=== PATIENT | female | born 1935 | race Caucasian/White ===

== ENCOUNTER 2019-10-20 15:29 | Inpatient (IN) | payer OTHER ==
[~2019-10-20] VITALS: Ht 154.9 cm; Wt 54.9 kg
[~2019-10-20 15:29] MED LIST: ASPI-1052 PO; BENA1TAB PO; DICL100T2 PO; MELO15TA11 PO; METO50TE2 PO; OMEGA 3 PO; [UNRECOGNIZED DRUG - CODE] PO
[2019-10-20 15:37] VITALS: BP 144/60
[2019-10-20] MEDS ORDERED: ACETAMINOPHEN EXTRA STRENGTH 500 MG TAB PO ONE (15:45)
--- NOTE | 2019-10-20 15:46 | NUR ---
tylenol administered by sonia encarnacion for fever
--- NOTE | 2019-10-20 15:47 | NUR ---
PT TAKEN TO ER BED 06
--- NOTE | 2019-10-20 15:50 | NUR ---
C/O PRODUCTIVE COUGH, FEVER, BODY ACHES X 1 WEEK, WITH DECREASED APPETITE X 2 DAYS. TEMP 103.5 AT THIS TIME. CRACKLES IN BILATERAL LUNGS, PT FRAIL IN APPEARANCE. PT ALERT AND AWAKE. AMBULATORY WITH ASSISTANCE. PMH- HTN
--- NOTE | 2019-10-20 15:51 | NUR ---
PT DENIES AB PAIN, SOB, CP, OR N/V/D
[2019-10-20] MEDS ORDERED: NACL 0.9% 1,600 ML IV ONE (16:34)
[2019-10-20] MEDS ORDERED: LEVOFLOXACIN 500 MG/D5W PREMIX 100 ML IV ONE (16:35)
[2019-10-20] MEDS ORDERED: AZITHROMYCIN 500 MG in DEXTROSE 5% 250 ML IV ONE (16:35)
--- NOTE | 2019-10-20 16:39 | NUR ---
PT AMB TO RESTROOM WITH ASSISTANCE, URINE COLLECTED
[2019-10-20] MEDS ORDERED: AZITHROMYCIN 500 MG INJ VIAL IV ONE (16:42)
--- NOTE | 2019-10-20 16:50 | NUR ---
IV INSERTED BY STUDENTS AND INSTRUCTOR
--- NOTE | 2019-10-20 17:03 | NUR ---
XRAY AT BEDSIDE
[2019-10-20 17:05] LABS: APPEARANCE,URINE SL CLOUDY (CLEAR); BILIRUBIN,URINE 1+ (NEGATIVE); BLOOD, URINE 3+ (NEGATIVE); COLOR,URINE YELLOW (YELLOW); LEUKOCYTE ESTERASE ,URINE TRACE (NEGATIVE); NITRITE, URINE NEGATIVE (NEGATIVE); PH,URINE 5.5 (5.0-9.0); UGLUCOSE NEGATIVE (NEGATIVE)
--- NOTE | 2019-10-20 17:06 | NUR ---
FLUIDS AND LEVAQUIN STARTED
--- NOTE | 2019-10-20 17:08 | NUR ---
VS STABLE. PT AFEBRILE, NADR
--- NOTE | 2019-10-20 17:08 | NUR ---
PER DR PIERCE HOLD IVF AT THIS TIME
[2019-10-20 17:25] LABS: BASOPHILS # (AUTO) 0.1 K/uL (0.00-0.22); BASOPHILS % (AUTO) 0.9 % (0.0-2.0); EOSINOPHILS % (AUTO) 0.2 % (0.0-4.0); HEMATOCRIT 38.7 % (36-48); HEMOGLOBIN 12.7 g/dL (12.0-16.0); LYMPHOCYTES # (AUTO) 0.8 K/uL (2.5-16.5); LYMPHOCYTES % (AUTO) 8.5 % (20.5-51.1); MEAN CORPUSCULAR HEMOGLOBIN 30 pg (27-31); MEAN CORPUSCULAR HGB CONC 33 g/dL (33-37); MEAN CORPUSCULAR VOLUME 91.3 fL (80-94); MONOCYTES # (AUTO) 0.5 K/uL (0.8-1.0); MONOCYTES % (AUTO) 5.6 % (1.7-9.3); NEUTROPHILS # (AUTO) 8.2 K/uL (1.8-7.7); NEUTROPHILS % (AUTO) 84.8 % (42.2-75.2); PLATELET COUNT (AUTO) 341 K/uL (140-450); RED BLOOD CELL COUNT(AUTO) 4.25 MIL/uL (4.20-5.40); RED CELL DISTRIBUTION WIDTH 12.6 % (11.6-13.7); WHITE BLOOD COUNT (AUTO) 9.6 K/uL (4.8-10.8)
[2019-10-20 17:30] LABS: RBC,URINE 11-20 (MOD) /HPF (0-5)
[2019-10-20 17:40] LABS: ANION GAP 11.7 (8-16); ASPARTATE AMINOTRANSFERASE 22 U/L (15-37); CARBON DIOXIDE 29.2 mmol/L (21-32); CHLORIDE 98 mmol/L (98-107); CREATININE 0.7 mg/dL (0.6-1.3); GLUCOSE 111 mg/dL (74-106); POTASSIUM 3.9 mmol/L (3.5-5.1); SODIUM SERUM 135 mmol/L (136-145); TOTAL BILIRUBIN 0.4 mg/dL (0.0-1.0); UREA NITROGEN, BLOOD 10 mg/dL (7-18)
[2019-10-20] MEDS ORDERED: NACL 0.9% 1,000 ML IV SCH (18:28)
--- NOTE | 2019-10-20 18:28 | NUR ---
PT FORGETFUL, CONTINUES TO ASK WHERE HER SON WENT. REMINDED PT THAT HER SON WENT TO GO GET FOOD. PT CANT RECALL MONTH OR YEAR. REMEMBERS HER BIRTHDAY AND NAME AND PLACE.
--- NOTE | 2019-10-20 18:28 | NUR ---
CONTINUING TO HOLD IVF, PENDING ADMISSION
[2019-10-20] MEDS ORDERED: ONDANSETRON 4 MG/2 ML VIAL IM/IVP PRN (18:30)
[2019-10-20] MEDS ORDERED: DOCUSATE SODIUM 100 MG GELCAP PO PRN (18:30)
[2019-10-20] MEDS ORDERED: ACETAMINOPHEN 325 MG TAB PO PRN (18:30)
--- NOTE | 2019-10-20 18:38 | NUR ---
VERBAL ORDER FOR CARDIAC DIET, PT OKAY TO EAT PER DR PIERCE
--- NOTE | 2019-10-20 18:45 | NUR ---
PTS SON AT BEDSIDE, CANT RECALL PTS MEDICATIONS. STATES HE WILL GO HOME AND GET A LIST
--- NOTE | 2019-10-20 19:04 | NUR ---
assisted pt to restroom. son returned to bedside. informed pb pineda rn, that med rec needs to be completed.
--- NOTE | 2019-10-20 19:08 | NUR ---
REPORT GIVEN BY SILVIA COELHO AND ASSUMED CARE. PT IN BED WITH MEAL TRAY AT BEDSIDE.
[2019-10-20 19:16] LABS: PROTHROMBIN TIME 10.7 secs (10.8-13.4)
[2019-10-20] MEDS ORDERED: ALBU2SYR49 PO (19:29)
[2019-10-20 19:30] LABS: MAGNESIUM 1.8 mg/dL (1.8-2.4); PHOSPHORUS 2.9 mg/dL (2.5-4.9); THYROID STIMULATING HORMONE 1.17 uIU/mL (0.34-3.74)
[2019-10-20 20:40] VITALS: BP 132/58
--- NOTE | 2019-10-20 20:45 | NUR ---
PT ARRIVED ON UNIT VIA GIULIA REPORT GIVEN AT BEDSIDE FORM GILBERTO RN DAYSHIFT NURSE. PT IS AOX2-3 WITH 4 LITERS N/C, PT HAS SKI INTACT AND IV SITE #20 G ON LEFT WRIST INTACT AND ASYMPTOMATIC. PT ABLE TO AMBULATE WITH ASSISTANCE,. SHE IS ALERT WITH CONFUSION. PT PLACED ON FALLS PRECAUTIONS. V/S FOLLOWS: T 98.0 P 60 R 18 B/P 132/58 02 94% WITH 4 LITERS VIA N/C.
--- NOTE | 2019-10-20 20:58 | NUR ---
Patient will be admitted to care of DR WHATLEY. Admited to [facility]. Will go to room 120B. Belongings list completed. Report to SILVIA HERRON.
--- NOTE | 2019-10-20 22:00 | NUR ---
PT INTERVIEWED WITH PRIMARY MD AT BEDSIDE. PT CONTINUES ON 4 LITERS SUPPLEMENTAL 02 % LUNGS CLEAR. PT ASSISTED TO TOILET AND BACK. MD ORDERED NS WITH D5 SALINE LOCKED. HE ORDERED ZOSYN FOR KVO AND ORDERED FLUIDS TO NS RUNNING AY 10MLS/HR.ALL FALLS PRECAUTIONS IN PLACE.
[2019-10-20] MEDS ORDERED: FUROSEMIDE 40 MG/4 ML VIAL IVP SCH (22:50)
[2019-10-20] MEDS ORDERED: DEXT 5% / NACL 0.9% 500 ML IV SCH (22:50)
[2019-10-20] MEDS ORDERED: ALBUTEROL SULFATE/IPRATROPIU 3 ML SOL IH PRN (23:25)
[2019-10-20] MEDS ORDERED: MECLIZINE 25 MG TAB PO PRN (23:45)
[2019-10-21] MEDS ORDERED: PIPERACILLIN/TAZOBACTAM 4.5 GM in DEXTROSE 5% 100 ML IV SCH ×2
--- NOTE | 2019-10-21 00:30 | NUR ---
PT ASSISTED TO TOILET AND BACK AND PLACED ON OXYGEN. ATTE,PTED TO REACH. ATTEMPTED TO REACH V/S, PT IN STABLE CONDITION. ALL UNIVERSAL PRECAUTIONS IN PLACE.
[2019-10-21] MEDS ORDERED: PIPERACILLIN/TAZOBACTAM 3.375 GM VIAL IV ONE ×2 (00:55→05:17)
[2019-10-21] MEDS: METOPROLOL SUCCINATE 50 MG TABER PO SCH ×2 (01:14→20:05)
[2019-10-21] MEDS: PIPERACILLIN/TAZOBACTAM 3.375 GM in DEXTROSE 5% 50 ML IV SCH ×5 (01:16→23:35)
[2019-10-21 04:00] VITALS: BP 145/62
--- NOTE | 2019-10-21 04:00 | NUR ---
PT ESCORTED TO TOILET THROUGHOUT NIGHT. RT TOOK BLOOD AT BEDSIDE.A UNIVERSAL PRECAUTIONS IN PLACE,
--- NOTE | 2019-10-21 05:30 | NUR ---
LIN OVALLE AND RUNNING ORDERED. LAST V/S FOLLOWS: T 98.3 P 62 R 18 B/P 145/62 02 4LITERS. ALL UNIVERSAL PRECAUTIONS IN PLACE.
[2019-10-21 06:15] LABS: BASOPHILS % (AUTO) 0.2 % (0.0-2.0); EOSINOPHILS % (AUTO) 0.5 % (0.0-4.0); HEMATOCRIT 37.5 % (36-48); HEMOGLOBIN 12.3 g/dL (12.0-16.0); LYMPHOCYTES # (AUTO) 1.3 K/uL (2.5-16.5); LYMPHOCYTES % (AUTO) 17.5 % (20.5-51.1); MEAN CORPUSCULAR HEMOGLOBIN 30 pg (27-31); MEAN CORPUSCULAR HGB CONC 33 g/dL (33-37); MEAN CORPUSCULAR VOLUME 91.5 fL (80-94); MONOCYTES # (AUTO) 0.5 K/uL (0.8-1.0); MONOCYTES % (AUTO) 7.1 % (1.7-9.3); NEUTROPHILS # (AUTO) 5.6 K/uL (1.8-7.7); NEUTROPHILS % (AUTO) 74.7 % (42.2-75.2); PLATELET COUNT (AUTO) 310 K/uL (140-450); RED CELL DISTRIBUTION WIDTH 12.5 % (11.6-13.7); WHITE BLOOD COUNT (AUTO) 7.5 K/uL (4.8-10.8)
[2019-10-21 06:49] LABS: ANION GAP 5.3 (8-16); CARBON DIOXIDE 34.1 mmol/L (21-32); CHLORIDE 102 mmol/L (98-107); CREATININE 0.7 mg/dL (0.6-1.3); GLUCOSE 108 mg/dL (74-106); POTASSIUM 3.4 mmol/L (3.5-5.1); SODIUM SERUM 138 mmol/L (136-145); UREA NITROGEN, BLOOD 8 mg/dL (7-18)
[2019-10-21 07:04] LABS: CHOL/HDL RATIO 3.5 (1-4.5)
--- NOTE | 2019-10-21 07:25 | NUR ---
RECEIVED BEDSIDE REPORT FROM SILVIA HERRON. PATIENT AWAKE, ALERT AND ORIENTED X2. RESPIRATIONS EVEN AND UNLABORED. INTRODUCED SELF. NO S/S OF DISTRESS NOTED. BED IN LOW POSITION. BED ALARM ON. SAFETY MEASURES IN PLACE. CALL LIGHT WITHIN REACH. IV INTACT AND PATENT TO LEFT FOREARM. PLANS OF CARE DISCUSSED.
[2019-10-21 08:00] VITALS: BP 151/52
[2019-10-21] MEDS: ALBUTEROL SULFATE/IPRATROPIU 3 ML SOL IH SCH ×3 (08:30→21:04)
--- NOTE | 2019-10-21 08:30 | NUR ---
AWAKE AND ALERT VERBALLY RESPONSIVE TO SALES PLANNING MANAGER RESPONSIVE TO SALES PLANNING MANAGER VERBAL COMMANDS EDUCATION PROVIDED TO PATIENT WITH ACKNOWLEDGEMENT ON SPUTUM CULTURE OBTAINMENT SPECIMEN CUP PLACED ON PATIENT BEDSDIE TABLE
[2019-10-21] MEDS ORDERED: ASPIRIN 325 MG TABEC PO SCH (09:00)
--- NOTE | 2019-10-21 09:01 | NUR ---
PATIENT HAS BEEN SCREENED AND CATEGORIZED MODERATE NUTRITION RISK. PATIENT WILL BE SEEN WITHIN 3-5 DAYS OF ADMISSION. 10/23/19 10/25/[address]
[2019-10-21] MEDS: PANTOPRAZOLE 40 MG INJ VIAL IVP SCH (09:10)
[2019-10-21] MEDS: methylPREDNISolone SS 40 MG/ML VIAL IVP SCH ×2 (09:10→20:05)
[2019-10-21] MEDS: AZITHROMYCIN 250 MG in DEXTROSE 5% 250 ML IV SCH (09:10)
[2019-10-21] MEDS: BENAZEPRIL 10 MG TAB PO SCH (09:13)
[2019-10-21] MEDS: MULTIVITAMIN/MINERALS 1 TAB PO SCH (09:14)
[2019-10-21] MEDS: LACTOBACILLUS RHAMNOSUS GG 1 EACH CAP PO SCH (09:15)
[2019-10-21] MEDS: HYDROCHLOROTHIAZIDE 25 MG TAB PO SCH (09:29)
--- NOTE | 2019-10-21 09:30 | NUR ---
PATIENT REMAINS STABLE. PATIENT IS ALERT AND VERBALLY RESPONSIVE, ORIENTED X1-2. PATIENT REQUIRES REORIENTATION DUE TO PERIODS OF CONFUSION. ASSISTED PATIENT TO THE RESTROOM. PATIENT NOW IN BED. BED ALARM ON. SAFETY MEASURES IN PLACE. BED IN LOW POSITION. CALL LIGHT WITHIN REACH. NO DISTRESS NOTED.
[2019-10-21] MEDS ORDERED: ECOTRIN 81 MG TABEC PO SCH (09:35)
--- NOTE | 2019-10-21 11:30 | NUR ---
PATIENT IN BED, AWAKE, VERBALLY RESPONSIVE, ORIENTED X1-2. PATIENT REQUIRES PROMPTING AND EDUCATION IN REGARDS TO FALL PREVENTION. PATIENT GETS OUT OF BED WITHOUT CALLING FOR A NURSE. ENCOURAGED TO USE CALL LIGHT WITHIN REACH. PATIENT IS ON O2 @ 4L NC. O2 SAT 94%. NO S/S OF DISTRESS NOTED. BED ALARM ON, BED IN LOW POSITION. BEDSIDE COMMODE IN PLACE. SAFETY MEASURES IN PLACE.
[2019-10-21 12:00] VITALS: BP 141/71
--- NOTE | 2019-10-21 12:07 | NUR ---
*S.T. BEDSIDE SWALLOW EVAL COMPLETED* See report. Pt presents w/ mild oral difficulty managing solids c/b prolonged mastication and oral residue post swallow. No overt s/s aspiration observed, however, across all textures. Pt is able to self-feed w/o difficulty. Recommend: 1) Advance to mechanical soft chopped diet, thin liquids okay. Straws okay. 2) P.O. meds as tolerated. 3) Nsg to assist pt w/ tray set up to promote self-feeding. No further swallow tx indicated at this time. DC to nsg care. Endorsed to SILVIA Bustamante. Time [id number]
--- NOTE | 2019-10-21 12:30 | NUR ---
EDUCATED PATIENT IN REGARDS TO KEEPING HER O2 CANNULA IN PLACE TO PREVENT SOB. PATIENT VERBALIZED UNDERSTANDING. WILL CONTINUE TO MONITOR.
[2019-10-21] MEDS ORDERED: POTASSIUM CHLORIDE 10 MEQ TABER PO SCH (13:00)
[2019-10-21] MEDS: NACL 0.9% 1,000 ML IV SCH (13:50)
--- NOTE | 2019-10-21 14:30 | NUR ---
ROUNDS MADE. PATIENT IN STABLE CONDITION. PATIENT BED, ASLEEP, EASILY AROUSABLE BY NAME OR TOUCH. BED ALARM ON. BED IN LOW POSITION. NO S/S OF DISTRESS NOTED. CALL LIGHT WITHIN REACH.
[2019-10-21 16:00] VITALS: BP 104/50
--- NOTE | 2019-10-21 16:03 | NUR ---
DISCHARGE PLANNING . 84 y/o female pt admitted for decreased appetite, SOB, asthma. Pt with hx of CHF. Pt on IV zosyn, zithromax and levaquin. Pt on O2 and breathing treatments. UA was positive. DC plan pending on needs identified at the time of DC. CELESTINE/JACKIE will continue following up as needed. SOCORRO Nguyen/JACKIE Addendum: 10/22/19 at 1607 by Catina Nails CM RECEIVED AN ORDER FOR SNF EVALUATION FOR PT. REFERRAL SENT TO [facility]. 1205[facility] ON[facility]. Addendum: 10/24/19 at 1205 by Ria Stapleton DC PLANNING RECEIVED A CALL FROM KELSEY AT [facility] ,ACCEPTED PT , CAN GO TO ROOM 403B AND PER KELSEY WILL ARRANGE TRANSPORT. CM TO FOLLOW. Addendum: 10/25/19 at 1151 by Ria Stapleton CM DC PLANNING: PT IS ACCEPTED AT [facility] ROOM 403B # TO GIVE REPORT [phone]. MARTY COLE ARRANGED TRANSPORT AND RAVELER TIME WILL BE 4 PM NOTIFIED RAHEEM VEGA
--- NOTE | 2019-10-21 16:30 | NUR ---
ROUNDS MADE. PATIENT IN STABLE CONDITION. PATIENT BED, AWAKE, ALERT WITH PERIODS OF CONFUSION. BED ALARM ON. BED IN LOW POSITION. NO S/S OF DISTRESS NOTED. CALL LIGHT WITHIN REACH.
--- NOTE | 2019-10-21 18:30 | NUR ---
PATIENT IS EATING DINNER INDEPENDENTLY. ALERT AND ORIENTED X2. NO S/S OF DISTRESS NOTED. CALL LIGHT WITHIN REACH. FALL PRECAUTION IN PLACE.
--- NOTE | 2019-10-21 19:05 | NUR ---
RECEIVED PATIENT IN STABLE CONDITION FROM AM SHIFT NURSE FOR CONTINUITY OF CARE. RESPIRATIONS EVEN, UNLABORED. CONTINUES ON O2 4L NC. O2SAT 94%. IV SITE TO RIGHT AC NOTED TO BE INFILTRATED. HELD IV FLUIDS AT THIS TIME. NO C/O PAIN. NO S/SX ACUTE DISTRESS. SAFETY PRECAUTIONS IN PLACE. CALL LIGHT WITHIN REACH. WILL CONTINUE TO MONITOR.
--- NOTE | 2019-10-21 19:05 | NUR ---
PT IN STABLE CONDITION. WILL ENDORSE TO NIGHT NURSE FOR CONTINUITY OF CARE.
--- NOTE | 2019-10-21 19:30 | NUR ---
REMOVED IV SITE LEFT FA 20G, CANNULA INTACT. NO BLEEDING NOTED. NEW IV INSERTED TO LEFT AC 20G USING ASEPTIC TECHNIQUE. IV FLUIDS INFUSING WELL. NO C/O PAIN. NO S/SX ACUTE DISTRESS. CALL LIGHT WITHIN REACH. WILL CONTINUE TO MONITOR.
[2019-10-21 20:00] VITALS: BP 113/46
--- NOTE | 2019-10-21 21:04 | NUR ---
RECEIVED PATIENT ON 4L NASAL CANNULA, PULSE OX SAT 93%. SCHEDULED BREATHING TREATMENT ADMINISTERED. TOLERATED TX WELL WITHOUT ADVERSE SIDE EFFECTS. PT MADE AWARE OF ORDERED MEDICATION FREQUENCY. NO ACUTE RESPIRATORY DISTRESS NOTED AT THIS TIME. WILL CONTINUE TO MONITOR.
[2019-10-21] MEDS: HYDROcodone/APAP 5/325 MG 1 TAB TAB PO PRN (22:41)
--- NOTE | 2019-10-21 22:41 | NUR ---
PATIENT C/O ACHING BACK PAIN 01/21. MEDICATED ORDERED. WILL CONTINUE TO MONITOR.
--- NOTE | 2019-10-21 23:41 | NUR ---
REASSESSED PAIN LEVEL, PATIENT STILL IN PAIN. WILL MEDICATED ORDERED.
[2019-10-21] MEDS: MORPHINE SULFATE 2 MG/ML SYR IVP PRN (23:53)
--- NOTE | 2019-10-21 23:53 | NUR ---
PATIENT C/O ACHING BACK PAIN 02/20. MEDICATED ORDERED. WILL CONTINUE TO MONITOR.
[2019-10-22] VITALS: BP 114/77
[2019-10-22] MEDS ORDERED: MELATONIN 3 MG TAB PO SCH (00:35)
--- NOTE | 2019-10-22 00:53 | NUR ---
REASSESSED PAIN LEVEL AT 3/10, TOLERABLE PAIN LEVEL FOR PATIENT. CALL LIGHT WITHIN REACH. WILL CONTINUE TO MONITOR.
[2019-10-22] MEDS: MORPHINE SULFATE 2 MG/ML SYR IVP PRN (01:25)
--- NOTE | 2019-10-22 01:58 | NUR ---
PATIENT IS CONFUSED AND CONTINUES TO TRY TO GET OUT OF BED. REORIENTED PATIENT NUMEROUS TIMES. PATIENT IS CLEAN/DRY. NO S/SX ACUTE DISTRESS. SAFETY PRECAUTIONS IN PLACE. BED ALARM IS ON. CALL LIGHT WITHIN REACH. WILL CONTINUE TO MONITOR.
--- NOTE | 2019-10-22 02:54 | NUR ---
ASSISTED PATIENT TO BEDSIDE COMMODE. NO C/O PAIN. NO S/SX ACUTE DISTRESS. SAFETY PRECAUTIONS IN PLACE. CALL LIGHT WITHIN REACH. WILL CONTINUE TO MONITOR.
[2019-10-22 04:00] VITALS: BP 129/58
--- NOTE | 2019-10-22 04:51 | NUR ---
MADE ROUNDS. PATIENT AWAKE AND IN STABLE CONDITION. ASSISTED PATIENT TO BEDSIDE COMMODE. NO C/O PAIN. NO S/SX ACUTE DISTRESS. CALL LIGHT WITHIN REACH. SAFETY PRECAUTIONS IN PLACE. WILL CONTINUE TO MONITOR.
[2019-10-22] MEDS: PIPERACILLIN/TAZOBACTAM 3.375 GM in DEXTROSE 5% 50 ML IV SCH ×4 (05:14→23:03)
[2019-10-22 06:16] LABS: BASOPHILS % (AUTO) 0.1 % (0.0-2.0); HEMATOCRIT 38.9 % (36-48); HEMOGLOBIN 12.6 g/dL (12.0-16.0); LYMPHOCYTES % (AUTO) 16.2 % (20.5-51.1); MEAN CORPUSCULAR HEMOGLOBIN 30 pg (27-31); MEAN CORPUSCULAR HGB CONC 32 g/dL (33-37); MEAN CORPUSCULAR VOLUME 91.8 fL (80-94); MONOCYTES # (AUTO) 0.3 K/uL (0.8-1.0); MONOCYTES % (AUTO) 4.9 % (1.7-9.3); NEUTROPHILS # (AUTO) 4.9 K/uL (1.8-7.7); NEUTROPHILS % (AUTO) 78.8 % (42.2-75.2); PLATELET COUNT (AUTO) 336 K/uL (140-450); RED BLOOD CELL COUNT(AUTO) 4.24 MIL/uL (4.20-5.40); RED CELL DISTRIBUTION WIDTH 12.5 % (11.6-13.7); WHITE BLOOD COUNT (AUTO) 6.3 K/uL (4.8-10.8)
[2019-10-22] MEDS: guaiFENesin 20 MG/ML UDC PO PRN (06:21)
--- NOTE | 2019-10-22 06:23 | NUR ---
PATIENT AWAKE AND IN STABLE CONDITION. NO C/O PAIN. NO S/SX ACUTE DISTRESS. CALL LIGHT WITHIN REACH. WILL CONTINUE TO MONITOR.
[2019-10-22 06:28] LABS: ANION GAP 12.4 (8-16); CARBON DIOXIDE 29.5 mmol/L (21-32); CHLORIDE 101 mmol/L (98-107); CREATININE 0.8 mg/dL (0.6-1.3); GLUCOSE 150 mg/dL (74-106); POTASSIUM 3.9 mmol/L (3.5-5.1); SODIUM SERUM 139 mmol/L (136-145); UREA NITROGEN, BLOOD 6 mg/dL (7-18)
[2019-10-22 06:42] LABS: MAGNESIUM 1.9 mg/dL (1.8-2.4)
--- NOTE | 2019-10-22 07:22 | NUR ---
ENDORSED PATIENT TO AM SHIFT NURSE IN STABLE CONDITION FOR CONTINUITY OF CARE.
--- NOTE | 2019-10-22 07:23 | NUR ---
RECEIVED PATIENT FROM [facility] FOR CONTINUITY OF CARE. PT IS ON 2L NASAL CANNULA, PULSE OX SAT 96%. NO ACUTE RESPIRATORY DISTRESS NOTED AT THIS TIME. PT SKIN IS INTACT. ON REGULAR DIET. AMBULATORY W/ ASSIST. DISCUSSED POC WITH PT AND PT VERBALIZED UNDERSTANDING. BOARD UPDATED. WILL ROUND FREQUENTLY THROUGHOUT SHIFT.
[2019-10-22] MEDS: ALBUTEROL SULFATE/IPRATROPIU 3 ML SOL IH SCH ×3 (07:24→19:48)
[2019-10-22 08:00] VITALS: BP 156/59
--- NOTE | 2019-10-22 09:24 | NUR ---
ADMINISTERED MORNING MEDS TO PT. PT TOLERATED WELL. ALL NEEDS MET. WILL CONTINUE TO ROUND ON PT.
[2019-10-22] MEDS: NACL 0.9% 1,000 ML IV SCH ×2 (09:50→23:08)
[2019-10-22] MEDS: AZITHROMYCIN 250 MG in DEXTROSE 5% 250 ML IV SCH (09:53)
[2019-10-22] MEDS: PANTOPRAZOLE 40 MG INJ VIAL IVP SCH (09:54)
[2019-10-22] MEDS: LACTOBACILLUS RHAMNOSUS GG 1 EACH CAP PO SCH (09:54)
[2019-10-22] MEDS: HYDROCHLOROTHIAZIDE 25 MG TAB PO SCH (09:54)
[2019-10-22] MEDS: methylPREDNISolone SS 40 MG/ML VIAL IVP SCH ×2 (09:54→20:44)
[2019-10-22] MEDS: BENAZEPRIL 10 MG TAB PO SCH (09:55)
[2019-10-22] MEDS: ECOTRIN 81 MG TABEC PO SCH (09:55)
[2019-10-22] MEDS: MULTIVITAMIN/MINERALS 1 TAB PO SCH (09:55)
--- NOTE | 2019-10-22 11:59 | NUR ---
PT EATING LUNCH IN BED. PT IV WAS PULLED OUT. WILL START IV WHEN PT IS DONE WITH LUNCH.
--- NOTE | 2019-10-22 13:39 | NUR ---
PT RESTING IN BED WATCHING TV. ALL NEEDS CURRENTLY MET.
--- NOTE | 2019-10-22 15:16 | NUR ---
PT SLEEPING. ALL NEEDS MET. NO SOB OR DISTRESS NOTED. WILL CONTINUE TO ROUND FREQUENTLY ON PT.
[2019-10-22 16:00] VITALS: BP 142/61
--- NOTE | 2019-10-22 17:39 | NUR ---
PT RESTING IN BED EATING DINNER. ALL NEEDS MET.
[2019-10-22] MEDS ORDERED: BENZOCAINE 20% 57 GM CAN MC PRN (17:55)
--- NOTE | 2019-10-22 19:14 | NUR ---
RECEIVED PATIENT IN STABLE CONDITION FROM AM SHIFT NURSE FOR CONTINUITY OF CARE. RESPIRATIONS EVEN, UNLABORED. IV SITE TO RIGHT AC 20G PATENT/INTACT, INFUSING FLUIDS WELL. NO C/O PAIN. NO S/SX ACUTE DISTRESS. SAFETY PRECAUTIONS IN PLACE. CALL LIGHT WITHIN REACH. WILL CONTINUE TO MONITOR.
--- NOTE | 2019-10-22 19:34 | NUR ---
ENDORSED PT TO RETAIL WIRELESS SALES REPRESENTATIVE FOR CONTINUITY OF CARE. PT IN STABLE CONDITION AT THIS TIME.
--- NOTE | 2019-10-22 19:59 | NUR ---
RECEIVED PATIENT ON 2L NASAL CANNULA, PULSE OX SAT 91-92%. INCREASED TO 3LPM TO MAINTAIN ADEQUATE OXYGENATION SAT >92% PER O2 ORDER. PULSE OX SAT INCREASE TO 93-94%. SCHEDULED BREATHING TREATMENT ADMINISTERED. TOLERATED TX WELL WITHOUT ADVERSE SIDE EFFECTS. PT MADE AWARE OF ORDERED MEDICATION FREQUENCY AND INSTRUCTED TO CALL NEEDED FOR SOB. NO ACUTE RESPIRATORY DISTRESS NOTED AT THIS TIME. WILL CONTINUE TO MONITOR.
[2019-10-22] MEDS: METOPROLOL SUCCINATE 50 MG TABER PO SCH (20:44)
--- NOTE | 2019-10-22 21:46 | NUR ---
PATIENT CONTINUES IN STABLE CONDITION. NO C/O PAIN. NO S/SX ACUTE DISTRESS. SAFETY PRECAUTIONS IN PLACE. CALL LIGHT WITHIN REACH. WILL CONTINUE TO MONITOR.
--- NOTE | 2019-10-22 21:50 | NUR ---
PATIENT ATTEMPTING MULTIPLE TIMES TO GET OUT OF BED. ASSISTED PATIENT TO THE BEDSIDE COMMODE. PATIENT IS CLEAN/DRY. PATIENT NEEDS FREQUENT REORIENTATION REGARDING SAFETY. SAFETY PRECAUTIONS IN PLACE. CALL LIGHT WITHIN REACH. WILL CONTINUE TO MONITOR.
--- NOTE | 2019-10-22 23:12 | NUR ---
PATIENT AWAKE AND IN STABLE CONDITION. NO C/O PAIN. NO S/SX ACUTE DISTRESS. SAFETY PRECAUTIONS IN PLACE. CALL LIGHT WITHIN REACH. WILL CONTINUE TO MONITOR.
[2019-10-23] VITALS: BP 144/50
[2019-10-23] MEDS: HYDROcodone/APAP 5/325 MG 1 TAB TAB PO PRN (00:39)
--- NOTE | 2019-10-23 00:39 | NUR ---
PATIENT C/O ACHING BILATERAL LEG PAIN 01/21. REPOSITIONED AND ELEVATED LEGS FOR COMFORT, MEDICATED ORDERED. CALL LIGHT WITHIN REACH. WILL CONTINUE TO MONITOR.
--- NOTE | 2019-10-23 01:39 | NUR ---
REASSESSED PAIN LEVEL, PATIENT C/O 02/20. PATIENT AMBULATED WITH ASSISTANCE AROUND ROOM. ASSISTED PATIENT BACK INTO BED, ELEVATED LEGS AND WILL MEDICATE ORDERED.
[2019-10-23] MEDS: MORPHINE SULFATE 2 MG/ML SYR IVP PRN (01:45)
--- NOTE | 2019-10-23 01:45 | NUR ---
MEDICATED ORDERED. SAFETY PRECAUTIONS OBSERVED. WILL CONTINUE TO MONITOR.
[2019-10-23] MEDS: traZODone 50 MG TAB PO SCH ×2 (02:45→20:42)
--- NOTE | 2019-10-23 02:45 | NUR ---
REASSESSED PAIN LEVEL AT 2/10, TOLERABLE PAIN LEVEL. SAFETY PRECAUTIONS IN PLACE. CALL LIGHT WITHIN REACH. WILL CONTINUE TO MONITOR.
--- NOTE | 2019-10-23 03:00 | NUR ---
PATIENT CONFUSED AND NEEDS FREQUENT REORIENTATION REGARDING SAFETY. PATIENT IS CLEAN/DRY. SAFETY PRECAUTIONS IN PLACE. CALL LIGHT WITHIN REACH. WILL CONTINUE TO MONITOR.
[2019-10-23] MEDS ORDERED: HALOPERIDOL IM 5 MG/ML VIAL IM SCH (04:20)
[2019-10-23] MEDS ORDERED: HALOPERIDOL IM 5 MG/ML VIAL ONE (04:21)
--- NOTE | 2019-10-23 04:49 | NUR ---
PATIENT PULLED OUT IV SITE RIGHT AC 20G. REINSERTED NEW IV TO LEFT FOREARM 20G, PATENT/INTACT, FLUIDS ARE INFUSING WELL. NO C/O PAIN. SAFETY PRECAUTIONS IN PLACE. CALL LIGHT WITHIN REACH. WILL CONTINUE TO MONITOR.
--- NOTE | 2019-10-23 04:51 | NUR ---
HALDOL 1MG GIVEN TO PATIENT. SAFETY PRECAUTIONS IN PLACE. CALL LIGHT WITHIN REACH. WILL CONTINUE TO MONITOR.
[2019-10-23] MEDS: PIPERACILLIN/TAZOBACTAM 3.375 GM in DEXTROSE 5% 50 ML IV SCH ×4 (05:00→23:30)
--- NOTE | 2019-10-23 05:24 | NUR ---
PATIENT STILL AWAKE AND TRYING TO GET OUT OF BED. PATIENT IS CLEAN/DRY. NO C/O PAIN. FREQUENT ROUNDS BY ALL STAFF. SAFETY PRECAUTIONS IN PLACE. CALL LIGHT WITHIN REACH. WILL CONTINUE TO MONITOR.
--- NOTE | 2019-10-23 05:51 | NUR ---
PATIENT LAYING QUIETLY IN BED. NO C/O PAIN. NO S/SX ACUTE DISTRESS. CALL LIGHT WITHIN REACH. WILL CONTINUE TO MONITOR.
--- NOTE | 2019-10-23 06:08 | NUR ---
PATIENT ASLEEP AND IN STABLE CONDITION. NO C/O PAIN. NO S/SX ACUTE DISTRESS. CALL LIGHT WITHIN REACH. WILL CONTINUE TO MONITOR.
[2019-10-23] MEDS: ALBUTEROL SULFATE/IPRATROPIU 3 ML SOL IH SCH ×3 (06:25→19:12)
[2019-10-23 07:08] LABS: BASOPHILS % (AUTO) 0.3 % (0.0-2.0); HEMATOCRIT 36.2 % (36-48); HEMOGLOBIN 11.9 g/dL (12.0-16.0); LYMPHOCYTES # (AUTO) 1.3 K/uL (2.5-16.5); LYMPHOCYTES % (AUTO) 12.9 % (20.5-51.1); MEAN CORPUSCULAR HEMOGLOBIN 30 pg (27-31); MEAN CORPUSCULAR HGB CONC 33 g/dL (33-37); MEAN CORPUSCULAR VOLUME 90.6 fL (80-94); MONOCYTES # (AUTO) 0.5 K/uL (0.8-1.0); MONOCYTES % (AUTO) 5.1 % (1.7-9.3); NEUTROPHILS # (AUTO) 8.1 K/uL (1.8-7.7); NEUTROPHILS % (AUTO) 81.7 % (42.2-75.2); PLATELET COUNT (AUTO) 306 K/uL (140-450); RED CELL DISTRIBUTION WIDTH 12.6 % (11.6-13.7); WHITE BLOOD COUNT (AUTO) 9.9 K/uL (4.8-10.8)
--- NOTE | 2019-10-23 07:16 | NUR ---
ENDORSED PATIENT IN STABLE CONDITION TO AM SHIFT NURSE FOR CONTINUITY OF CARE.
--- NOTE | 2019-10-23 07:18 | NUR ---
RECEIVED BEDSIDE REPORT FROM CREOSOTING ENGINEER NURSE OXANA FOR CONTINUITY OF CARE. PT IS RESTING ON BED AT THIS TIME, AROUSABLE TO VOICE. RESPIRATION EVEN AND UNLABORED ON 3LPM VIA NC. FLACC 0. NO SIGNS OF DISTRESS NOTED. IV ON LFA 20, CLEAN AND INTACT, INFUSING PER MD ORDER. SKIN CLEAN AND DRY. PT IS CONTINENT AND AMBULATE WITH ASSIST. FALL RISK PROTOCOL IN PLACE AND BED ALARM ACTIVATED. SAFETY MEASURES IN PLACE. BED IN LOW POSITION AND CALL LIGHT WITHIN REACH.
[2019-10-23 07:30] LABS: ANION GAP 10.9 (8-16); CARBON DIOXIDE 31.7 mmol/L (21-32); CHLORIDE 102 mmol/L (98-107); CREATININE 0.8 mg/dL (0.6-1.3); GLUCOSE 134 mg/dL (74-106); POTASSIUM 3.6 mmol/L (3.5-5.1); SODIUM SERUM 141 mmol/L (136-145); UREA NITROGEN, BLOOD 10 mg/dL (7-18)
[2019-10-23 07:33] LABS: MAGNESIUM 1.8 mg/dL (1.8-2.4); PHOSPHORUS 3.2 mg/dL (2.5-4.9)
[2019-10-23 08:00] VITALS: BP 138/54
--- NOTE | 2019-10-23 09:40 | NUR ---
PHYSICAL THERAPIST NALLELY IS WORKING WITH PT. NO SIGNS OF DISTRESS NOTED.
[2019-10-23] MEDS: BENAZEPRIL 10 MG TAB PO SCH (10:20)
[2019-10-23] MEDS: PANTOPRAZOLE 40 MG INJ VIAL IVP SCH (10:20)
[2019-10-23] MEDS: MULTIVITAMIN/MINERALS 1 TAB PO SCH (10:20)
[2019-10-23] MEDS: LACTOBACILLUS RHAMNOSUS GG 1 EACH CAP PO SCH (10:20)
[2019-10-23] MEDS: HYDROCHLOROTHIAZIDE 25 MG TAB PO SCH (10:21)
[2019-10-23] MEDS: ECOTRIN 81 MG TABEC PO SCH (10:21)
[2019-10-23] MEDS: methylPREDNISolone SS 40 MG/ML VIAL IVP SCH (10:25)
--- NOTE | 2019-10-23 10:25 | NUR ---
CHECKED BP PRIOR TO MED ADMINISTRATION, BP 150/65 PULSE 71, ADMINISTERED MEDS PER MD ORDER, MEDS EDUCATION PROVIDED TO PT AND REINFORCEMENT NEEDED. PT IS RESTING ON BED. RESPIRATION EVEN AND UNLABORED ON RA. NO SIGNS OF DISTRESS NOTED. SAFETY MEASURES IN PLACE. FALL RISK PROTOCOL IN PLACE AND BED ALARM ACTIVATED.
[2019-10-23] MEDS: AZITHROMYCIN 250 MG in DEXTROSE 5% 250 ML IV SCH (10:32)
--- NOTE | 2019-10-23 10:55 | NUR ---
NOTIFIED DR MORRIS THAT SPUTUM WAS REJECTED BY [facility]AR. DR MORRIS WAS AWARE AND WILL INPUT ANOTHER ORDER FOR SPUTUM COLLECT.
--- NOTE | 2019-10-23 11:39 | NUR ---
PT IS RESTING ON BED, AROUSABLE TO VOICE. RESPIRATION EVEN AND UNLABORED ON RA. FLACC 0. NO SIGNS OF DISTRESS NOTED. SAFETY MEASURES IN PLACE. FALL RISK PROTOCOL IN PLACE AND BED ALARM ACTIVATED.
--- NOTE | 2019-10-23 12:12 | NUR ---
DISABILITIES CAREGIVER DISCHARGE ASSESSMENT [facility] Patient: Brad Zarina Li : 1935 Age/Sex: 84/F Unit#: [id number] Room/Bed: 110/B User: Violet Vega CM Date: 10/23/19 11:57 Type: CM: Discharge Planning Basic Screen: No High Risk DC Screen Yes Name: Merrill Li Relationship: Son/caregiver Pre-Admission Living Arrangements: Lives with Other Prior ADL Independent Current Home Health Name/Tel: [facility] [phone] Healthcare Decision Maker: Next of Kin Other: Patient and son Advance Directive No Information Taught: Advance Directive Person Taught: Family Teaching Tools: Verbal Participation Level: Active Discipline: Case Mgt/Social Svcs Tentative Discharge Plan/Destination: SNF/ECF Will require assistance post discharge: No Referred to Quality Assurance Practice Manager: No Tentative Discharge Plan Summary: 84 y/o female pt admitted for decreased appetite and SOB. Pt with hx of CHF, and asthma. Pt lives at home, son Merrill is the caregiver and spends most of the time with the pt. Sw met with pt at the bedside. Pt was alert to name only, confused otherwise and unable to provide reliable information.Sw called DONTE Li [phone]. Son is approved to care for pt [facility] (70 hrs/month). Per son, pt ambulates with a cane and prior to admission was independent with ADLs. Son stated the pt is participating in a clinical study for memory loss but pt has not been diagnosed with dementia/Alzheimer's. Pt was receiving services from [facility] for RN/PT . Pt doesn't have DPOA/AD. Educatuion provided over the phone to son. Sw discussed DC plan with son who is agreeable with SNF placement. Son requesting [facility]. Signature: Violet Vega LCSW Date: Oct 23, 2019
--- NOTE | 2019-10-23 12:38 | NUR ---
ADMINISTERED ZOSYN PER MD ORDER VIA IVPB, MED EDUCATION PROVIDED AND REINFORCEMENT NEEDED. PT IS EATING LUNCH ON BED. NO SIGNS OF DISTRESS NOTED. SAFETY MEASURES IN PLACE. BED IN LOW POSITION AND CALL LIGHT WITHIN REACH. BED ALARM ACTIVATED.
--- NOTE | 2019-10-23 13:16 | NUR ---
PT ATTEMPTED TO GET OUT OF BED AND BED ALARM WENT OFF. COMPLIANCE REPRESENTATIVE ATTENDED TO PT AND ASSISTED TO USE THE BATHROOM AND BACK TO BED. INSTRUCTED PT NOT TO GET OUT OF BED HERSELF AND USE THE CALL LIGHT FOR ANY ASSISTANCE. SAFETY MEASURES APPLIED AND BED ALARM ACTIVATED.
--- NOTE | 2019-10-23 15:50 | NUR ---
PT REQUESTED TO SIT UP ON A CHAIR. AGRICULTURE RESEARCH DIRECTOR ASSISTED PT TO SIT UP ON CHAIR BY BEDSIDE AND PUT TABLE IN FRONT. INSTRUCTED PT TO USE THE CALL LIGHT FOR ASSISTANCE AND NOT TO GET UP BY HERSELF, PT SAID "OK." NO SIGNS OF DISTRESS NOTED.
[2019-10-23 16:00] VITALS: BP 146/62
--- NOTE | 2019-10-23 17:29 | NUR ---
TEA TREE FARMER ASSISTED PT TO GO BACK ON BED AND POSITIONED COMFORTABLY. NO SIGNS OF DISTRESS NOTED. SAFETY MEASURES IN PLACE. BED IN LOW POSITION AND CALL LIGHT WITHIN REACH. BED ALARM ACTIVATED.
--- NOTE | 2019-10-23 18:18 | NUR ---
ADMINISTERED ZOSYN VIA IVPB PER MD ORDER, MED EDUCATION PROVIDED TO PT AND REINFORCEMENT NEEDED. PT IS SITTING UP ON EDGE OF BED WITH TABLE IN FRONT. INSTRUCTED PT TO USE THE CALL LIGHT FOR ANY ASSISTANCE AND DO NOT GET UP BY HERSELF. BED IN LOW POSITION AND CALL LIGHT WITHIN REACH. BED ALARM ACTIVATED.
[2019-10-23] MEDS ORDERED: HALOPERIDOL IM 5 MG/ML VIAL IM PRN (18:30)
--- NOTE | 2019-10-23 19:30 | NUR ---
RECEIVED BEDSIDE REPORT FROM DAY SHIFT NURSESONIYA FOR CONTINUITY OF CARE. SON AT BEDSIDE, PT IS RESTING ON BED AT THIS TIME, RESPIRATION EVEN AND UNLABORED ON 3LPM VIA NC. FLACC 0. NO SIGNS OF DISTRESS NOTED. IV ON LFA 20, CLEAN AND INTACT, INFUSING PER MD ORDER. SKIN CLEAN AND DRY. PT IS CONTINENT AND AMBULATE WITH ASSIST. FALL RISK PROTOCOL IN PLACE AND BED ALARM ACTIVATED. SAFETY MEASURES IN PLACE. BED IN LOW POSITION AND CALL LIGHT WITHIN REACH.
--- NOTE | 2019-10-23 19:30 | NUR ---
ENDORSED PT AT BEDSIDE TO MESS COOK NURSE FOR CONTINUITY OF CARE. PT AWAKE AND SON IS BY BEDSIDE. NO SIGNS OF DISTRESS NOTED. SAFETY MEASURES IN PLACE. PT IS IN STABLE CONDITION.
[2019-10-23] MEDS ORDERED: FUROSEMIDE 20 MG/2 ML VIAL IVP SCH (20:05)
[2019-10-23] MEDS: METOPROLOL SUCCINATE 50 MG TABER PO SCH (20:44)
--- NOTE | 2019-10-23 20:49 | NUR ---
GIVEN TRAZODONE, TOPROL XL, HEPARIN AND LASIX MD ORDERED. PT TOLERATED WELL.
--- NOTE | 2019-10-23 22:08 | NUR ---
PT AWAKE, TRYING TO GET OUT OF BED. ORIENTED PT. NO ACUTE DISTRESS NOTED.
--- NOTE | 2019-10-23 22:24 | NUR ---
2200 placed patient on bipap ipap 10 epap 5 rr14 fio2 30%. size small mask. patient was placed on cpap of 5cm first. could not tolerate it. bipap was tried. pt would not wear it . felt claustrophobic. placed pt back on 3 lnc with humidification
--- NOTE | 2019-10-23 22:42 | NUR ---
PT RESTLESS, GIVEN HALDOL MD ORDERED. PT TOLERATED WELL.
--- NOTE | 2019-10-23 23:30 | NUR ---
GIVEN ZOSYN MD ORDERED. PT TOLERATED WELL.
[2019-10-23] MEDS: NACL 0.9% 1,000 ML IV SCH (23:34)
[2019-10-24] VITALS: BP 158/66
[2019-10-24] MEDS: guaiFENesin 20 MG/ML UDC PO PRN (00:30)
--- NOTE | 2019-10-24 00:31 | NUR ---
PT COUGHING. GIVEN ROBITUSSIN MD ORDERED. PT TOLERATED WELL.
--- NOTE | 2019-10-24 02:31 | NUR ---
PT SLEEPING IN BED COMFORTABLY. NO ACUTE DISTRESS NOTED.
[2019-10-24] MEDS: PIPERACILLIN/TAZOBACTAM 3.375 GM in DEXTROSE 5% 50 ML IV SCH ×4 (05:01→23:32)
--- NOTE | 2019-10-24 05:02 | NUR ---
GIVEN ZOSYN MD ORDERED. PT TOLERATED WELL.
--- NOTE | 2019-10-24 06:39 | NUR ---
PT IN STABLE CONDITION. WILL ENDORSE PT TO DAY SHIFT NURSE.
[2019-10-24 06:43] LABS: HEMATOCRIT 39.7 % (36-48); HEMOGLOBIN 12.7 g/dL (12.0-16.0); LYMPHOCYTES % (AUTO) 28.4 % (20.5-51.1); MEAN CORPUSCULAR HEMOGLOBIN 29 pg (27-31); MEAN CORPUSCULAR HGB CONC 32 g/dL (33-37); MEAN CORPUSCULAR VOLUME 91.2 fL (80-94); MONOCYTES # (AUTO) 0.7 K/uL (0.8-1.0); MONOCYTES % (AUTO) 7.1 % (1.7-9.3); NEUTROPHILS # (AUTO) 6.7 K/uL (1.8-7.7); NEUTROPHILS % (AUTO) 64.5 % (42.2-75.2); PLATELET COUNT (AUTO) 331 K/uL (140-450); RED BLOOD CELL COUNT(AUTO) 4.35 MIL/uL (4.20-5.40); RED CELL DISTRIBUTION WIDTH 12.8 % (11.6-13.7); WHITE BLOOD COUNT (AUTO) 10.4 K/uL (4.8-10.8)
[2019-10-24 07:08] LABS: ANION GAP 9.2 (8-16); CARBON DIOXIDE 35.1 mmol/L (21-32); CHLORIDE 101 mmol/L (98-107); CREATININE 0.8 mg/dL (0.6-1.3); GLUCOSE 96 mg/dL (74-106); POTASSIUM 3.3 mmol/L (3.5-5.1); SODIUM SERUM 142 mmol/L (136-145); UREA NITROGEN, BLOOD 10 mg/dL (7-18)
[2019-10-24] MEDS: ALBUTEROL SULFATE/IPRATROPIU 3 ML SOL IH SCH ×3 (07:08→19:40)
[2019-10-24 07:09] LABS: MAGNESIUM 1.8 mg/dL (1.8-2.4); PHOSPHORUS 2.8 mg/dL (2.5-4.9)
--- NOTE | 2019-10-24 07:21 | NUR ---
RECEIVED BEDSIDE SHIFT REPORT FROM BI SPECIALIST NURSE FOR CONTINUATION OF CARE.
[2019-10-24 08:00] VITALS: BP 165/67
[2019-10-24] MEDS ORDERED: methylPREDNISolone SS 40 MG/ML VIAL IVP SCH (09:00)
[2019-10-24] MEDS: PANTOPRAZOLE 40 MG INJ VIAL IVP SCH (09:52)
[2019-10-24] MEDS: HYDROCHLOROTHIAZIDE 25 MG TAB PO SCH (09:53)
[2019-10-24] MEDS: ECOTRIN 81 MG TABEC PO SCH (09:53)
[2019-10-24] MEDS: MULTIVITAMIN/MINERALS 1 TAB PO SCH (09:53)
[2019-10-24] MEDS: LACTOBACILLUS RHAMNOSUS GG 1 EACH CAP PO SCH (09:54)
[2019-10-24] MEDS: BENAZEPRIL 10 MG TAB PO SCH (09:54)
--- NOTE | 2019-10-24 10:00 | NUR ---
TOLERATED MEDICATIONS WELL, CONFUSED, AAOX1. IV RUNNING NS, TOLERATING WELL. BED LINEN CHANGED, VOIDED X1. CONTINENT OF BOTH BOWEL AND URINE. WILL CONTINUE TO MONITOR.
[2019-10-24] MEDS: AZITHROMYCIN 250 MG in DEXTROSE 5% 250 ML IV SCH (10:08)
--- NOTE | 2019-10-24 13:13 | NUR ---
10/24/19 RD INITIAL ASSESSMENT COMPLETED PLEASE REFER TO NUTRITION ASSESSMENT UNDER CARE ACTIVITY FOR ESTIMATED NUTRITIONAL NEEDS. 1. CONTINUE MECHANICAL SOFT CHOP DIET TOLERATED 2. RECOMMEND ENSURE TID 3. RD TO FOLLOW-UP 3-5 DAYS, MODERATE RISK JATINDER HAMMER RD
--- NOTE | 2019-10-24 15:00 | NUR ---
PATIENT REMAINS CONFUSED, A/OX1, UNABLE TO STATE WHERE SHE IS. PATIENT IS COOPERATIVE WITH MEDICAL TREATMENT, FAMILY AT BEDSIDE, NO CONCERNS AT THIS TIME. WILL CONTINUE TO MONITOR.
[2019-10-24] MEDS ORDERED: TRAZ-466 PO (15:46)
[2019-10-24] MEDS ORDERED: BENA-11 PO (15:46)
[2019-10-24] MEDS ORDERED: HEPA500056 SUBQ (15:46)
[2019-10-24] MEDS ORDERED: LACT10CA PO (15:46)
[2019-10-24] MEDS ORDERED: ALBU3SOL83 IH ×2 (15:46)
[2019-10-24] MEDS ORDERED: PANT40PD7 IVP (15:46)
[2019-10-24] MEDS ORDERED: ASPI-1173 PO (15:46)
[2019-10-24] MEDS ORDERED: ACET-1182 PO (15:46)
[2019-10-24 16:00] VITALS: BP 177/66
[2019-10-24] MEDS ORDERED: POTASSIUM CHLORIDE 10 MEQ TABER PO SCH (16:00)
[2019-10-24] MEDS ORDERED: hydrALAZINE 20 MG/ML VIAL IVP SCH (17:45)
--- NOTE | 2019-10-24 19:25 | NUR ---
BEDSIDE SHIFT REPORT GIVEN TO HAM BONER NURSE FOR CONTINUATION.
--- NOTE | 2019-10-24 19:30 | NUR ---
RECEIVED BEDSIDE REPORT FROM AM SHIFT RN FOR PT'S CONTINUITY OF CARE. PT IS SITTING UP IN BED, REQUESTING TO GO TO THE RESTROOM, DENIES ANY PAIN AT THIS TIME. PT IS AAOX1, ON 3L O2 VIA NC, HAS LEFT FA 22G WITH NS AT 50ML/HR. ASSISTED PT TO THE RESTROOM, TOLERATED IT WELL. EXPLAINED TO PT THE ADULT HEALTH CLINICAL NURSE SPECIALIST ROUTINE, PT VERBALIZED UNDERSTANDING. SAFETY MEASURES IN PLACE AND CALL LIGHT IS WITHIN REACH. WILL MONITOR PT THROUGHOUT SHIFT.
[2019-10-24] MEDS ORDERED: CRUSHER, PILL MC ONE (20:30)
[2019-10-24] MEDS: traZODone 50 MG TAB PO SCH (20:34)
[2019-10-24] MEDS: METOPROLOL SUCCINATE 50 MG TABER PO SCH (20:34)
--- NOTE | 2019-10-24 20:45 | NUR ---
ADMINISTERED SCHEDULED MEDICATIONS ORDERED. PT TOLERATED THEM WELL. PT ABLE TO SWALLOW PO MEDICATIONS. PT TEACHING GIVEN. PT APPEARS TO BE CONFUSED, DOES NOT KNOW WHERE SHE IS, TOOK 3X TO ANSWER CORRECT BIRTHDATE, ORIENTED TO FULL NAME. PT MADE COMFORTABLE BUT KEEPS GETTING UP TO SIT UP IN BED. WILL CONTINUE TO MONITOR PT.
[2019-10-24] MEDS ORDERED: HALOPERIDOL IM 5 MG/ML VIAL IM PRN (21:45)
--- NOTE | 2019-10-24 22:00 | NUR ---
ASSISTED PT TO THE BEDSIDE COMMODE. PT TOLERATED ACTIVITY WELL. PT STATES HER SON IS COMING TO SPEND TIME WITH HER, REORIENTED PT TO THE SURROUNDINGS AND TIME. PT NOTED TO BE RESTLESSNESS. REORIENTED AND MADE COMFORTABLE IN BED. WILL CONTINUE TO MONITOR.
[2019-10-24] MEDS: NACL 0.9% 1,000 ML IV SCH (23:30)
--- NOTE | 2019-10-24 23:30 | NUR ---
ADMINISTERED SCHEDULED IV ABX AND STARTED NEW IVF. PT TEACHING GIVEN. PT APPEARS TO BE CONFUSED, STATING SHE IS AT HOME. PT APPEARS TO BE MORE RESTLESS. REORIENTED PT AND MADE PT COMFORTABLE IN BED.
--- NOTE | 2019-10-24 23:50 | NUR ---
PT NOTED AND OBSERVED TO HAVE INCREASED RESTLESSNESS. ADMINISTERED PRN IM MEDICATION FOR RESTLESSNESS. PT TOLERATED IT WELL. MADE PT COMFORTABLE, SAFETY MEASURES IN PLACE, AND CALL LIGHT IS WITHIN REACH. WILL CONTINUE TO MONITOR PT.
--- NOTE | 2019-10-24 23:55 | NUR ---
CONVERTED PT TO TELEMETRY FOR HALOPERIDOL PROTOCOL PER MD ORDER.
[2019-10-25] VITALS: BP 175/71
[2019-10-25] MEDS: MORPHINE SULFATE 2 MG/ML SYR IVP PRN (00:37)
--- NOTE | 2019-10-25 00:37 | NUR ---
PT C/O "VERY PAINFUL" ON HER LEFT SHOULDER. ADMINISTERED PRN IVP PAIN MEDICATION ORDERED. REORIENTED PT TO THE HOSPITAL SURROUNDINGS AND MADE PT COMFORTABLE. SAFETY MEASURES IN PLACE AND CALL LIGHT IS WITHIN REACH. WILL CONTINUE TO MONITOR PT.
[2019-10-25] MEDS ORDERED: HALOPERIDOL IM 5 MG/ML VIAL IM PRN (01:00)
--- NOTE | 2019-10-25 01:11 | NUR ---
PT REFUSED BIPAP. PT REMAINS ON 3LNC. WILL CONT TO MONITOR
--- NOTE | 2019-10-25 03:25 | NUR ---
PT C/O SORE THROAT. ADMINISTERED PRN ORAL ANESTHETIC ORDERED. PT MADE COMFORTABLE. REORIENTED PT TO THE HOSPITAL SURROUNDINGS, PT STILL ATTEMPTING TO GET OUT OF BED. WILL CONTINUE TO MONITOR PT.
[2019-10-25 04:00] VITALS: BP 181/72
[2019-10-25] MEDS ORDERED: hydrALAZINE 20 MG/ML VIAL IVP ONE (04:30)
--- NOTE | 2019-10-25 04:30 | NUR ---
VS CHECKED AND CHARTED. ELEVATED BP, NOTIFIED MD, NEW ORDER OF HYDRALAZINE. ASSISTED PT TO THE BSC. WILL CARRY OUT ORDER.
--- NOTE | 2019-10-25 04:50 | NUR ---
ADMINISTERED SCHEDULED IVP APRESOLINE. PT AWAKE, REDIRECTED PT TO SLEEP AND REORIENTED TO THE TIME. PT VERBALIZED UNDERSTANDING. WILL CONTINUE TO MONITOR PT.
[2019-10-25] MEDS: PIPERACILLIN/TAZOBACTAM 3.375 GM in DEXTROSE 5% 50 ML IV SCH (05:12)
--- NOTE | 2019-10-25 05:12 | NUR ---
ADMINISTERED SCHEDULED IV ABX ORDERED. PT LYING DOWN HALF ASLEEP WITH NO SIGNS OF DISTRESS. WILL CONTINUE TO MONITOR PT.
--- NOTE | 2019-10-25 06:00 | NUR ---
BP RE-ASSESSED AND CHARTED. BP 164/75 HR 80. PT WAS ASSISTED TO BSC. REORIENTED PT TO SURROUNDINGS AND ENCOURAGED TO GET SOME SLEEP. PT VERBALIZED UNDERSTANDING. WILL ENDORSE TO AM SHIFT RN FOR PT'S CONTINUITY OF CARE.
[2019-10-25 06:33] LABS: BASOPHILS % (AUTO) 0.1 % (0.0-2.0); EOSINOPHILS % (AUTO) 0.1 % (0.0-4.0); HEMATOCRIT 39.4 % (36-48); HEMOGLOBIN 12.8 g/dL (12.0-16.0); LYMPHOCYTES # (AUTO) 2.8 K/uL (2.5-16.5); LYMPHOCYTES % (AUTO) 25.4 % (20.5-51.1); MEAN CORPUSCULAR HEMOGLOBIN 29 pg (27-31); MEAN CORPUSCULAR HGB CONC 33 g/dL (33-37); MEAN CORPUSCULAR VOLUME 90.3 fL (80-94); MONOCYTES # (AUTO) 0.8 K/uL (0.8-1.0); MONOCYTES % (AUTO) 6.8 % (1.7-9.3); NEUTROPHILS # (AUTO) 7.4 K/uL (1.8-7.7); NEUTROPHILS % (AUTO) 67.6 % (42.2-75.2); PLATELET COUNT (AUTO) 305 K/uL (140-450); RED BLOOD CELL COUNT(AUTO) 4.36 MIL/uL (4.20-5.40); RED CELL DISTRIBUTION WIDTH 12.6 % (11.6-13.7)
[2019-10-25 07:07] LABS: ANION GAP 12.8 (8-16); CARBON DIOXIDE 29.6 mmol/L (21-32); CHLORIDE 102 mmol/L (98-107); CREATININE 0.8 mg/dL (0.6-1.3); GLUCOSE 120 mg/dL (74-106); POTASSIUM 3.4 mmol/L (3.5-5.1); SODIUM SERUM 141 mmol/L (136-145); UREA NITROGEN, BLOOD 9 mg/dL (7-18)
[2019-10-25 07:10] LABS: MAGNESIUM 1.8 mg/dL (1.8-2.4); PHOSPHORUS 2.3 mg/dL (2.5-4.9)
--- NOTE | 2019-10-25 07:25 | NUR ---
RECEIVED REPORT FROM [employer]NRICHMENT ASSISTANT NURSE, AOX1, INTACT SKIN CRACKLING LUNG SOUND AND IV ON LEFT FOREARM G22. ENCOURAG TO GET MORE SLEEP AND REST. MONITORED AND WILL CONTINUE CARE FOR THE PATINT.
[2019-10-25] MEDS: ALBUTEROL SULFATE/IPRATROPIU 3 ML SOL IH SCH ×2 (07:45→13:25)
[2019-10-25 08:00] VITALS: BP 129/69
[2019-10-25] MEDS: MULTIVITAMIN/MINERALS 1 TAB PO SCH (08:55)
[2019-10-25] MEDS: ECOTRIN 81 MG TABEC PO SCH (08:56)
[2019-10-25] MEDS: HYDROCHLOROTHIAZIDE 25 MG TAB PO SCH (08:57)
[2019-10-25] MEDS: LACTOBACILLUS RHAMNOSUS GG 1 EACH CAP PO SCH (08:57)
[2019-10-25] MEDS ORDERED: BENAZEPRIL 20 MG TAB PO SCH (09:00)
[2019-10-25] MEDS: AZITHROMYCIN 250 MG in DEXTROSE 5% 250 ML IV SCH (09:00)
[2019-10-25] MEDS ORDERED: methylPREDNISolone SS 40 MG/ML VIAL IVP SCH (09:00)
[2019-10-25] MEDS: PANTOPRAZOLE 40 MG INJ VIAL IVP SCH (09:03)
--- NOTE | 2019-10-25 09:26 | NUR ---
SCHEDULED MEDICATIONS BEEN GIVEN. CONTINUE TO MONITOR.
[2019-10-25] MEDS ORDERED: PIPE1SOL IV (11:00)
[2019-10-25] MEDS ORDERED: PIPERACILLIN/TAZOBACTAM 3.375 GM in DEXTROSE 5% 50 ML IV SCH (12:30)
--- NOTE | 2019-10-25 12:56 | NUR ---
SCHEDULED MEDICATION DUE GIVEN. WILL CONTINUE TO MONITOR
[2019-10-25 13:27] VITALS: BP 142/69
--- NOTE | 2019-10-25 13:42 | NUR ---
CALLED [facility] AND GAVE REPORT TO SILVIA STREETER. ANSWERED ALL OF HER QUESTIONS REGARDING TRANSFER AND NOTIFIED HER OF TRANSPORT ESTIMATED TIME OF [id number]. FERDINAND VERBALIZED COMPLETE UNDERSTANDING AND AWAITING FOR PATIENT ARRIVAL. CALLED PATIENT'S SON, KODY GIBBONS AND LET HIM KNOW ABOUT HER MOTHER'S PLANNED TRANSFER TO [facility] LATER TODAY. KODY VERBALIZED COMPLETE UNDERSTANDING AND SAID HE WILL BE AT HOSPITAL BEFORE THE TRANSPORTERS ARRIVE. DISCHARGE INSTRUCTIONS PROVIDED TO PATIENT. INSTRUCTIONS ON NEW/CHANGED MEDICATIONS REGIMEN, DIET REGIMEN, AND PLAN FOR CONTINUED IV ANTIBX AND PHYSICAL THERAPY AT [facility]. REINFORCEMENT NEEDED. WILL CONTINUE TO MONITOR.
[2019-10-25] MEDS ORDERED: SODIUM PHOS / POTASSIUM PHOS 1 PKT PDR PO SCH (14:00)
[2019-10-25] MEDS ORDERED: POTASSIUM CHLORIDE 10 MEQ TABER PO SCH (14:00)
--- NOTE | 2019-10-25 14:56 | NUR ---
SCHEDULED MEDICATION DUE GIVEN. WILL CONTINUE TO MONITOR
--- NOTE | 2019-10-25 15:40 | NUR ---
TRANSPORTER ON UNIT TO TAKE PATIENT TO [facility]. PATIENT TRANSFERRED AT THIS TIME IN STABLE CONDITION. ALL BELONGINGS WITH PATIENT.
== END 2019-10-25 15:40 | DRG 177 ==
LOC: MED 15:29 → MTU 20:30
PROVIDERS: ADMIT General Practice; ATTEND General Practice
DX: J69.0 Pneumonitis due to inhalation of food and vomit (principal); J96.01 Acute respiratory failure with hypoxia; G93.41 Metabolic encephalopathy; J45.901 Unspecified asthma with (acute) exacerbation; J44.1 Chronic obstructive pulmonary disease with (acute) exacerbation; I42.9 Cardiomyopathy, unspecified; N39.0 Urinary tract infection, site not specified; E44.1 Mild protein-calorie malnutrition; E87.1 Hypo-osmolality and hyponatremia; E11.9 Type 2 diabetes mellitus without complications; E78.5 Hyperlipidemia, unspecified; I50.9 Heart failure, unspecified; I11.0 Hypertensive heart disease with heart failure; R31.9 Hematuria, unspecified; E87.6 Hypokalemia; Z90.710 Acquired absence of both cervix and uterus; Z90.49 Acquired absence of other specified parts of digestive tract; Z88.2 Allergy status to sulfonamides
CPT/HCPCS: 36415; 36600; 71045; 76770; 80048; 80053; 81001; 82803; 83036; 83605; 83690; 83735; 83880; 84100; 84443; 85025; 85610; 85730; 87040; 87070; 87081; 87086; 87205; 87804; 92610; 93005; 94640; 96365; 96367; 97110; 97112; 97116; 97161-GP; 97530; 99285; C9113; J0360; J0456; J0696; J1630; J1644; J1940; J1956; J2270; J2543; J2920; J7030; J7042; J7060; Q0092